=== PATIENT | male | born 1975 | race Caucasian/White ===

== ENCOUNTER 2017-06-08 09:10 | Emergency (ER) | payer OTHER ==
[~2017-06-08] VITALS: Ht 180.3 cm; Wt 93.0 kg
[~2017-06-08 09:10] MED LIST: ATIVAN1 MG PO; CIPROFLOXACIN500 MG PO; EFFEXOR XR75 M2 PO; FISH OIL1000 MG PO; HYDROCODONE BIT1 T11 PO; MAGNESIUM PO; MOTRIN800 MG PO; VISTARIL50 MG PO; VITAMIN B COMPL1 T12 PO; VITAMIN C1000 M2 PO; VITAMIN D32000 IU PO
[2017-06-08] MEDS ORDERED: ZOLPIDEM TART10 MG PO (09:19)
[2017-06-08] MEDS ORDERED: HYDROXYZINE HCL25 M1 PO (09:19)
== END 2017-06-08 09:25 | disposition home or self-care (01) ==
LOC: ED 09:10
DX: G47.00 Insomnia, unspecified (principal); F17.200 Nicotine dependence, unspecified, uncomplicated; F42.9 Obsessive-compulsive disorder, unspecified; Z79.899 Other long term (current) drug therapy

== ENCOUNTER 2020-07-13 08:38 | Emergency (ER) | payer SELFPAY ==
[~2020-07-13] VITALS: Ht 180.3 cm; Wt 95.3 kg
[~2020-07-13 08:38] MED LIST changes: +HYDROXYZINE HCL25 M1 PO; +ZOLPIDEM TART10 MG PO
[2020-07-13 09:28] LABS: BASO # 0.1 10*3/uL (0.0-0.1); BASO % 0.6 % (0.0-1.0); EOS # 0.1 10*3/uL (0.0-0.4); EOS % 1.4 % (1.0-4.0); HEMATOCRIT 46.7 % (42.0-52.0); LYMPH # 1.6 10*3/uL (1.3-4.4); LYMPH % 20.5 % (27.0-41.0); MEAN CELL VOLUME 81.8 fl (80.0-94.0); MEAN CORPUSCULAR HGB 28.2 pg (27.0-31.0); MEAN CORPUSCULAR HGB CONC 34.5 g/dl (33.0-37.0); MEAN PLATELET VOLUME 9.7 fl (9.6-12.3); MONO # 0.6 10*3/uL (0.1-1.0); NEUT # 5.5 10*3/uL (2.3-7.9); NEUT % 70.2 % (47.0-73.0); PLATELET COUNT AUTOMATED 207 10*3/uL (130-400); RED BLOOD COUNT 5.71 10*6/uL (4.50-5.90); RED CELL DISTRI WIDTH 12.7 % (0-14.5); WHITE BLOOD COUNT 7.9 10*3/uL (4.8-10.8)
[2020-07-13 09:46] LABS: ALKALINE PHOSPHATASE 85 U/L (45-117); BUN 13 mg/dl (7-24); CHLORIDE 108 mmol/L (98-107); CREATININE 1.24 mg/dL (0.70-1.30); POTASSIUM 4.1 mmol/L (3.5-5.1); SGOT/AST 9 IU/L (3-35); SGPT/ALT 32 U/L (12-78); SODIUM 139 mmol/L (136-145); TOTAL PROTEIN 8.1 gm/dL (6.4-8.2)
[2020-07-13 09:47] LABS: TROPONIN I < 0.015 ng/ml (<0.045)
[2020-07-13] MEDS ORDERED: ATIVAN1 MG PO (11:50)
== END 2020-07-13 12:15 | disposition home or self-care (01) ==
LOC: ED 08:38
PROVIDERS: Emergency Medicine
DX: F41.9 Anxiety disorder, unspecified (principal); Z79.899 Other long term (current) drug therapy

== ENCOUNTER → 2020-07-25 | Outpatient (CLI) | payer SELFPAY | END | disposition home or self-care (01) | LOC: RESCLI 00:40 | PROVIDERS: ATTEND Internal Medicine Nephrology | DX: F51.01 Primary insomnia (principal); F41.9 Anxiety disorder, unspecified; F33.0 Major depressive disorder, recurrent, mild; Z79.899 Other long term (current) drug therapy; Z91.018 Allergy to other foods; Z98.890 Other specified postprocedural states ==

== ENCOUNTER 2023-11-11 13:19 | Emergency (ER) | payer OTHER ==
[~2023-11-11] VITALS: Ht 180.3 cm; Wt 93.0 kg
[2023-11-11 13:59] LABS: BASO % 0.4 % (0.0-1.0); EOS % 0.4 % (1.0-4.0); HEMATOCRIT 44.6 % (42.0-52.0); LYMPH # 1.6 10*3/uL (1.3-4.4); LYMPH % 16.8 % (27.0-41.0); MEAN CELL VOLUME 79.9 fl (80.0-94.0); MEAN CORPUSCULAR HGB 28.7 pg (27.0-31.0); MEAN CORPUSCULAR HGB CONC 35.9 g/dl (33.0-37.0); MEAN PLATELET VOLUME 9.3 fl (9.6-12.3); MONO # 0.6 10*3/uL (0.1-1.0); MONO % 6.9 % (3.0-9.0); NEUT # 6.9 10*3/uL (2.3-7.9); NEUT % 73.9 % (47.0-73.0); PLATELET COUNT AUTOMATED 222 10*3/uL (130-400); RED BLOOD COUNT 5.58 10*6/uL (4.50-5.90); RED CELL DISTRI WIDTH 13.4 % (0-14.5); WHITE BLOOD COUNT 9.3 10*3/uL (4.8-10.8)
[2023-11-11 14:12] LABS: BUN 8 mg/dl (9-23); CHLORIDE 107 mmol/L (98-107); ETHYL ALCOHOL 3.1 mg/dl (<3); POTASSIUM 3.4 mmol/L (3.4-5.1)
[2023-11-11 14:32] LABS: BILIRUBIN Negative (Negative); BLOOD Negative (Negative); CLARITY Clear (Clear); COLOR Yellow (Yellow); GLUCOSE Negative (Negative); KETONE Trace (Negative); LEUKO ESTERASE Negative (Negative); NITRITE Negative (Negative); PH 7.5 (4.5-8.0)
[2023-11-11 14:41] LABS: EPITHELIAL CELLS 0-2; RBC 0-2 rbc/hpf (0-2); WBC 0-2 wbc/hpf (0-5)
[2023-11-11 14:44] LABS: URINE AMPHETAMINES Negative (1000ng/ml); URINE BARBITURATES Negative (200ng/ml); URINE BENZODIAZEPINES Negative (200ng/ml); URINE CANNABINOIDS (THC) Negative (50ng/ml); URINE COCAINE Negative (300ng/ml); URINE METHADONE Negative (300ng/ml); URINE OPIATES Negative (300ng/ml); URINE PHENCYCLIDINE Negative (25ng/ml)
== END 2023-11-11 15:06 | disposition home or self-care (01) ==
LOC: ED 13:19
PROVIDERS: Physician Assistant Medical
DX: F43.21 Adjustment disorder with depressed mood (principal); F41.9 Anxiety disorder, unspecified; Z79.899 Other long term (current) drug therapy